=== PATIENT | male | born 1985 | race Caucasian/White ===

== ENCOUNTER → 2017-09-13 | Outpatient (CLI) | payer BC | LOC: M WUC 08:00 | DX: R19.7 Diarrhea, unspecified (principal) | CPT/HCPCS: 36415 ==

== ENCOUNTER 2018-08-28 17:20 | Day surgery (SDC) | payer BC ==
[~2018-08-28] VITALS: Ht 185.4 cm; Wt 88.6 kg
[2018-08-28] MEDS ORDERED: NS 1,000 ML IV SCH (18:00)
[2018-08-28] MEDS ORDERED: ONDANSETRON 4MG/2ML VIAL (J2405) IV ONE (18:15)
[2018-08-28] MEDS ORDERED: MORPHINE 4 MG/ML 1ML VIAL/SYRINGE (J2270) IV PRN ×2 (18:15→19:15)
[2018-08-28] MEDS ORDERED: PIPERACILLIN/TAZOBACTAM SOD 3.375 GM in D5W MINI-BAG PLUS 50 ML IV ONE (18:15)
[2018-08-28] MEDS ORDERED: ONDANSETRON 4MG/2ML VIAL (J2405) IV PRN (19:15)
[2018-08-28] MEDS ORDERED: KETOROLAC 30 MG/ML VIAL (J1885) IV PRN (19:15)
[2018-08-28] MEDS: LR 1,000 ML IV SCH (19:54)
[2018-08-29] MEDS ORDERED: BUPIVACAINE HCL 0.25% 30 ML VIAL As Ordered ONE (00:59)
[2018-08-29] MEDS ORDERED: PIPERACILLIN/TAZOBACTAM SOD 3.375 GM in D5W MINI-BAG PLUS 50 ML IV ONE (01:00)
[2018-08-29] MEDS ORDERED: ZOSYN 3.375 GM VIAL (J2543) As Ordered ONE (01:03)
[2018-08-29] MEDS ORDERED: fentaNYL 250 MCG/5 ML INJECTION (J3010) As Ordered ONE (01:40)
[2018-08-29] MEDS ORDERED: NEOSTIGMINE 10 MG/10 ML VIAL (J2710) As Ordered ONE (02:08)
[2018-08-29] MEDS ORDERED: KETOROLAC 60 MG/2 ML VIAL (J1885) As Ordered ONE (02:08)
[2018-08-29] MEDS ORDERED: dexameTHASONE 4 MG/ML 1ML VIAL (J1100) As Ordered ONE (02:08)
[2018-08-29] MEDS ORDERED: GLYCOPYRROLATE INJ 0.2 MG/ML 2 ML VIAL As Ordered ONE (02:08)
[2018-08-29] MEDS ORDERED: ONDANSETRON 4MG/2ML VIAL (J2405) As Ordered ONE (02:08)
[2018-08-29] MEDS ORDERED: ONDANSETRON 4MG/2ML VIAL (J2405) IV PRN (03:30)
[2018-08-29] MEDS ORDERED: ACETAMINOPHEN TAB 650MG DOSE (2X325MG) PO PRN (03:30)
[2018-08-29] MEDS ORDERED: IBUPROFEN 600 MG TAB PO PRN (03:30)
[2018-08-29] MEDS ORDERED: PERCOCET 5MG/325MG TAB PO PRN (03:30)
[2018-08-29] MEDS ORDERED: fentaNYL 100 MCG/2 ML INJECTION (J3010) IV PRN (03:30)
[2018-08-29] MEDS ORDERED: KETOROLAC 30 MG/ML VIAL (J1885) IV PRN (03:30)
[2018-08-29] MEDS ORDERED: NORCO, ANEXSIA 5/325MG TABLET (HYDROcodone/ACETAMINOPHEN) PO PRN (03:30)
[2018-08-29] MEDS ORDERED: LR 1,000 ML IV SCH (03:30)
[2018-08-29] MEDS: LR 1,000 ML IV SCH ×2 (06:00→10:40)
[2018-08-29 07:30] VITALS: BP 120/75
[2018-08-29 08:30] VITALS: BP 143/79
[2018-08-29 09:30] VITALS: BP 138/73
[2018-08-29 12:00] VITALS: BP 145/68
--- NOTE | 2018-08-30 08:59 | RO ---
DATE OF PROCEDURE: 08/29/2018 PREOPERATIVE DIAGNOSIS: Acute appendicitis and umbilical hernia. POSTOPERATIVE DIAGNOSIS: Acute appendicitis and umbilical hernia. PROCEDURE PERFORMED: Laparoscopic appendectomy with repair of umbilical hernia. SURGEON: Dr. Yobani Duncan CLINICAL SOCIAL WORK THERAPIST: ANESTHESIA: General. INDICATIONS FOR PROCEDURE: Patient is a 32-year-old man who presented to the emergency department with approximately a day and half of abdominal pain localized to the right lower quadrant. He had significant direct tenderness in the lateral right lower quadrant. His laboratory studies were normal, but an ultrasound showed a thickened noncompressible tubular structure consistent with an inflamed appendix. He is now for an appendectomy. He was noted to have a small umbilical hernia as well. OPERATIVE PROCEDURE: The patient was brought to the operating room and placed on the table in a supine position. He was placed under general endotracheal anesthesia. The patient's abdomen was prepped and draped in a sterile fashion. 0.25% Marcaine was infiltrated at each of the trocar sites as needed. The patient had a small umbilical hernia with some incarcerated fat. A roughly 2 cm midline incision was made beginning approximately in the center of his umbilicus and extending superiorly. Some fibrofatty tissue was found entrapped in the hernia sac and this was freed and excised and sent as a specimen with portions of the hernia sac. Two stay sutures were placed and a Zamora cannula was inserted through the fascial defect. The abdomen was inflated with carbon dioxide gas. The laparoscope was placed. The patient was noted to have a normal-appearing liver. The bowel was largely covered by the omentum. The patient was tilted slightly to a Trendelenburg position and rolled slightly to the left. A 5 mm trocar was placed in the left lower quadrant and a second 5 mm trocar was placed low in the midline. Graspers were inserted. The omentum was elevated up out of the right lower quadrant. The tip of the inflamed appendix was identified extending at the pelvic brim from behind the terminal ileum. This was grasped and elevated. Some filmy attachments along the lateral aspect of the mesoappendix were divided with cautery. The mesoappendix was then divided using primarily the hook cautery. Care was taken to ensure thorough hemostasis. The appendix was freed down to its base and the base of the appendix was then stapled with a 45 mm endoscopic linear cutter stapler with a blue load. The appendix was placed in an Endopouch. The right lower quadrant was irrigated and a small amount of spilled blood was removed. The patient was then returned to a flat position. The abdomen was deflated and the trocars were removed. The appendix was recovered through the umbilicus. The fascial edges were then cleared of some overlying fibrofatty tissue. The umbilical fascial defect was closed transversely with interrupted simple sutures of #2-0 Ethibond. The subcutaneous tissues were closed with Vicryl and the skin incisions were all closed with buried Vicryl and Steri-Strips. Additional local anesthesia was infiltrated around the umbilicus. The patient tolerated the procedure well without apparent complication. He was awakened in the operating room, extubated and moved to the recovery room in stable condition.
--- NOTE | 2018-08-31 03:33 | IPN ---
DATE: 08/29/2018 HISTORY: The patient is now approximately 6 hours postop from a laparoscopic appendectomy and repair of an umbilical hernia. He has done well following surgery. He has tolerated some clear liquids and has been out of bed to the bathroom. He has voided without difficulty. He denies any significant pain currently. VITAL SIGNS: Show that he has been afebrile. His pulse has been in the 60s to 70s and his blood pressure and pulse oximetry are fine. The patient has had only 240 mL of clear liquids recorded in so far since surgery. He has voided. Physical exam shows that he is easily arousable and alert and oriented. Heart exam shows a regular rhythm and he is not tachycardiac. The abdomen shows clean dressings on his incisions. He has bowel sounds present. There is no undue tenderness. IMPRESSION: The patient is doing well now approximately 6 hours postop from his surgery. PLAN: The patient will be allowed to take a regular diet. He is encouraged to be up out of bed and try walking in the hallway. He has several different medications ordered on an as needed basis for pain but has not required any medication to date. I advised him that I would expect him to be ready to go home in the next few hours. As long as he tolerates clear liquids and some kind of solid food and is adequately ambulatory, I believe that he can be discharged. We discussed pain medication and believe he will be able to get by with just some Tylenol or Advil. I advised him that I would want to see him back in the office in approximately 10 days and he should remain off work or avoid any strenuous activity or lifting for the next 2 weeks. I discussed the plans for discharge with the patient's nurse, who will let me know if there are any problems.
== END 2018-08-29 14:30 | disposition home or self-care (01) ==
LOC: M ED 17:20 → M SDC 19:10 → M PED 08-29 04:20 → M SDC 08-29 14:30
PROVIDERS: ATTEND Surgery
DX: K35.890 Other acute appendicitis without perforation or gangrene (principal); K42.9 Umbilical hernia without obstruction or gangrene
CPT/HCPCS: 44970; 49585; 88302; 96361; 96365; 96375; 99285; J1100; J1885; J2405; J2543; J2710; J3010

== ENCOUNTER → 2018-08-28 | Outpatient (CLI) | payer BC ==
[~2018-08-28] MED LIST: LIDOCAINE 2% INJ 100 MG/5 ML SDV (FOR ANES.) As Ordered ONE; MIDAZOLAM INJ 2 MG/2 ML VIAL (J2250) As Ordered ONE; ONDANSETRON 4MG/2ML VIAL (J2405) As Ordered ONE; PROPOFOL 200 MG/20 ML VIAL As Ordered ONE; ROCURONIUM BROMIDE 50 MG/5 ML VIAL As Ordered ONE; dexameTHASONE 4 MG/ML 1ML VIAL (J1100) As Ordered ONE; fentaNYL 100 MCG/2 ML INJECTION (J3010) As Ordered ONE
[2018-08-28 16:16] LABS: BASO # 0.1 10^3/uL (0.0-0.2); BASO % 0.6 % (0.0-1.0); EOS # 0.4 10^3/uL (0.0-0.50); EOS % 4.5 % (0.0-3.0); HEMATOCRIT 45.1 % (42.0-52.0); HEMOGLOBIN 15.2 g/dl (13.5-17.5); LYMPH # 2.7 10^3/uL (1.5-4.5); LYMPH % 29.3 % (24.0-44.0); MEAN CORPUSCULAR HEMOGLOBIN 31.1 pg (27.0-33.0); MEAN CORPUSCULAR HGB CONC 33.7 g/dl (32.0-36.5); MEAN CORPUSCULAR VOLUME 92.2 fl (80.0-96.0); MONO # 0.8 10^3/uL (0.0-0.8); MONO % 8.5 % (0.0-5.0); NEUTROPHILS # 5.3 10^3/uL (1.8-7.7); NEUTROPHILS % 56.7 % (36.0-66.0); PLATELET COUNT, AUTOMATED 159 10^3/uL (150-450); RED BLOOD COUNT 4.89 10^6/uL (4.30-6.10); WHITE BLOOD COUNT 9.3 10^3/uL (4.0-10.0)
[2018-08-28 16:47] LABS: ALBUMIN 4.1 GM/DL (3.2-5.2); ALT/SGPT 24 U/L (12-78); BILIRUBIN,TOTAL 0.6 MG/DL (0.2-1.0); BLOOD UREA NITROGEN 19 MG/DL (7-18); CARBON DIOXIDE LEVEL 31 MEQ/L (21-32); CHLORIDE LEVEL 105 MEQ/L (98-107); CREATININE FOR GFR 1.03 MG/DL (0.70-1.30); GLOMERULAR FILTRATION RATE > 60.0 (>60); GLUCOSE, FASTING 108 MG/DL (70-100); POTASSIUM SERUM 4.2 MEQ/L (3.5-5.1); SODIUM LEVEL 140 MEQ/L (136-145); TOTAL PROTEIN 7.1 GM/DL (6.4-8.2)
--- NOTE | 2018-08-28 16:57 | REP ---
Abdominal right lower quadrant ultrasound, stat request for right lower quadrant pain: There is a distended blind ending tubular structure in the right lower quadrant compatible with the appendix. This measures 10.3 mm in diameter. This structure is noncompressible. There is no appendicolith. There is pain with transducer pressure. There is rebound tenderness. There is mesenteric fat inflammation. No mesenteric nodes are identified. There is no free fluid. Small bowel peristalsis is identified. The cecum is visualized. There are no iliac nodes. Impression: The findings are compatible with acute appendicitis by ultrasound. Electronically Signed by Charlie Orona MD 08/28/2018 04:49 P
== END ==
LOC: M RAD 15:58
PROVIDERS: ATTEND Physician Assistant
DX: R10.9 Unspecified abdominal pain (principal)
CPT/HCPCS: 36415; 76857; 80053; 85025; 87086; J1100; J2250; J2405; J3010

== ENCOUNTER → 2019-10-24 | Outpatient (CLI) | payer BC ==
--- NOTE | 2019-10-24 16:42 | PFTRPT ---
Visit Date: 10/24/2019 Referring Doctor: Alexandra Flannery MD Height: 73.00 Inches Weight: 217.00 Lbs BSA: 2.23 Diagnosis: R06.02 Pre- and postbronchodilator tests have excellent technical quality. Forced vital capacity normal. FEV-1 out of proportion. Obstructive index is, therefore, reduced. Expiratory limb of the flow volume loop is consistent with flow rate limitation. Borderline bronchodilator response is identified. Total lung capacity normal. Residual volume borderline for air trapping. Diffusing capacity minimally elevated. Hemoglobin mildly reduce at 11.6. Airway resistance is markedly elevated with concomitant decrease in airway conductance. IMPRESSION: Moderate obstructive ventilatory impairment with borderline bronchodilator response. Elevating diffusing capacity and mild anemia. Please correlate clinically. MTDD
== END ==
LOC: M CARPUL 16:05
PROVIDERS: ATTEND Family Medicine
DX: R06.02 Shortness of breath (principal)

== ENCOUNTER → 2019-11-07 | Outpatient (REF) | payer BC ==
[2019-11-07 17:23] LABS: HEMATOCRIT 46.5 % (42.0-52.0); HEMOGLOBIN 15.6 g/dl (13.5-17.5); MEAN CORPUSCULAR HEMOGLOBIN 31.1 pg (27.0-33.0); MEAN CORPUSCULAR HGB CONC 33.5 g/dl (32.0-36.5); MEAN CORPUSCULAR VOLUME 92.6 fl (80.0-96.0); PLATELET COUNT, AUTOMATED 170 10^3/uL (150-450); RED BLOOD COUNT 5.02 10^6/uL (4.30-6.10); WHITE BLOOD COUNT 8.6 10^3/uL (4.0-10.0)
[2019-11-07 17:43] LABS: ALBUMIN 4.1 GM/DL (3.2-5.2); ALT/SGPT 41 U/L (12-78); BILIRUBIN,TOTAL 0.6 MG/DL (0.2-1.0); BLOOD UREA NITROGEN 19 MG/DL (7-18); CALCIUM LEVEL 9.3 MG/DL (8.5-10.1); CARBON DIOXIDE LEVEL 29 MEQ/L (21-32); CHLORIDE LEVEL 107 MEQ/L (98-107); CHOLESTEROL LEVEL 216 MG/DL (<200); CHOLESTEROL RISK RATIO 4.235 (<5); CREATININE FOR GFR 1.25 MG/DL (0.70-1.30); GLOMERULAR FILTRATION RATE > 60.0 (>60); GLUCOSE, FASTING 77 MG/DL (70-100); HDL CHOLESTEROL 51 MG/DL (>40); LDL CHOLESTEROL 129 MG/DL (<100); NON-HDL-C 165 MG/DL; POTASSIUM SERUM 3.8 MEQ/L (3.5-5.1); SODIUM LEVEL 142 MEQ/L (136-145); TOTAL PROTEIN 7.4 GM/DL (6.4-8.2); TRIGLYCERIDES LEVEL 181 MG/DL (<150)
== END ==
LOC: M PLALAB 15:25
PROVIDERS: ATTEND Family Medicine
DX: R06.02 Shortness of breath (principal); Z13.1 Encounter for screening for diabetes mellitus; Z13.220 Encounter for screening for lipoid disorders

== ENCOUNTER → 2019-11-07 | Outpatient (CLI) | payer BC ==
--- NOTE | 2019-11-07 16:40 | REPPI ---
CHEST, TWO VIEWS: Two views of the chest are performed. There is no acute infiltrate. The lungs are clear. The heart and mediastinum are within normal limits. There is an old healed fracture of the mid left clavicle. IMPRESSION: No active pulmonary disease. Electronically Signed by Charlie Storm MD 11/07/2019 07:43 P
== END ==
LOC: M PLAIMG 15:26
PROVIDERS: ATTEND Family Medicine
DX: R06.02 Shortness of breath (principal)

== ENCOUNTER → 2020-11-28 | Outpatient (REF) | payer BC | LOC: M LAB REF 15:04 | PROVIDERS: ATTEND Family Medicine | DX: D22.9 Melanocytic nevi, unspecified (principal) ==

== ENCOUNTER → 2021-10-21 | Outpatient (CLI) | payer BC ==
[2021-10-21 11:04] LABS: MALB URINE SIEMENS 8.1 MG/L; MAU/CREAT RATIO 3.5 MCG/MG (0.0-30.0)
[2021-10-21 11:13] LABS: BLOOD UREA NITROGEN 17 MG/DL (7-18); CALCIUM LEVEL 9.5 MG/DL (8.5-10.1); CARBON DIOXIDE LEVEL 32 MEQ/L (21-32); CHLORIDE LEVEL 105 MEQ/L (98-107); CREATININE FOR GFR 1.23 MG/DL (0.70-1.30); GLOMERULAR FILTRATION RATE > 60.0 (>60); GLUCOSE, FASTING 92 MG/DL (70-100); POTASSIUM SERUM 4.4 MEQ/L (3.5-5.1); SODIUM LEVEL 139 MEQ/L (136-145)
== END ==
LOC: M PLALAB 08:17
PROVIDERS: ATTEND Family Medicine
DX: I10 Essential (primary) hypertension (principal)

== ENCOUNTER → 2023-06-23 | Outpatient (CLI) | payer BC ==
[2023-06-23 11:02] LABS: BASO # 0.1 10^3/uL (0.0-0.2); BASO % 1.1 % (0.0-1.0); EOS # 0.3 10^3/uL (0.0-0.5); EOS % 4.2 % (0.0-3.0); HEMATOCRIT 45.9 % (42.0-52.0); HEMOGLOBIN 15.5 g/dl (13.5-17.5); LYMPH # 2.9 10^3/uL (1.5-5.0); LYMPH % 43.4 % (24.0-44.0); MEAN CORPUSCULAR HEMOGLOBIN 31.3 pg (27.0-33.0); MEAN CORPUSCULAR HGB CONC 33.8 g/dl (32.0-36.5); MEAN CORPUSCULAR VOLUME 92.7 fl (80.0-96.0); MONO # 0.5 10^3/uL (0.0-0.8); MONO % 7.2 % (2.0-8.0); NEUTROPHILS # 2.9 10^3/uL (1.5-8.5); NEUTROPHILS % 43.3 % (36.0-66.0); PLATELET COUNT, AUTOMATED 164 10^3/uL (150-450); RED BLOOD COUNT 4.95 10^6/uL (4.30-6.10); WHITE BLOOD COUNT 6.7 10^3/uL (4.0-10.0)
[2023-06-23 11:11] LABS: ALKALINE PHOSPHATASE 58 U/L (46-116); ALT/SGPT 34 U/L (7.0-40); AST/SGOT 15 U/L (<34); BLOOD UREA NITROGEN 16 MG/DL (9-23); CALCIUM LEVEL 9.5 MG/DL (8.5-10.1); CARBON DIOXIDE LEVEL 31 MMOL/L (20-31); CHLORIDE LEVEL 107 MMOL/L (98-107); CHOLESTEROL LEVEL 219 MG/DL (<200); CHOLESTEROL RISK RATIO 4.58 (<5); CREATININE FOR GFR 0.89 MG/DL (0.70-1.30); GLOMERULAR FILTRATION RATE > 60.0 (>60); GLUCOSE, FASTING 99 MG/DL (60-100); HDL CHOLESTEROL 47.8 MG/DL (>40); NON-HDL-C 171.2 MG/DL; POTASSIUM SERUM 4.3 MMOL/L (3.5-5.1); SODIUM LEVEL 141 MMOL/L (136-145); TOTAL PROTEIN 6.8 G/DL (5.7-8.2); TRIGLYCERIDES LEVEL 91 MG/DL (<150)
== END ==
LOC: M PLALAB 07:02
PROVIDERS: ATTEND Physician Assistant
DX: I10 Essential (primary) hypertension (principal); Z13.220 Encounter for screening for lipoid disorders

== ENCOUNTER → 2024-12-21 | Outpatient (REF) | payer OTHER ==
[2024-12-21 07:22] LABS: SEMEN APPEARANCE OPAQUE (OPAQUE); SEMEN VISCOSITY LIQUID (LIQUID); SEMEN VOLUME 2.5 ml (2.0-5.0); WBC CONCENTRATION <=1 M/ml (<=1 M/ml)
== END ==
LOC: M LAB REF 07:18
PROVIDERS: ATTEND Urology
DX: Z30.2 Encounter for sterilization (principal)